=== PATIENT | male | born 1985 ===

== ENCOUNTER 2022-01-27 15:58 | Emergency (ER) | payer OTHER ==
[2022-01-27] MEDS ORDERED: Acetaminophen 500 MG TAB ONE (16:27)
[2022-01-27 17:28] LABS: SARS-CoV-2 NAA Rapid Test Not Detected (NotDetected)
[2022-01-27] MEDS ORDERED: Ibuprofen 200 MG TAB ONE (17:30)
== END 2022-01-27 18:14 | disposition home or self-care (01) ==
LOC: ERS 15:58
DX: J06.9 Acute upper respiratory infection, unspecified (principal); R50.9 Fever, unspecified; M54.50 Low back pain, unspecified; Z20.822 Contact with and (suspected) exposure to COVID-19
CPT/HCPCS: 99283